=== PATIENT | male | born 1965 | race African-American/Black ===

== ENCOUNTER 2018-11-21 18:16 | Inpatient (IN) | payer MEDICAID, OTHER ==
[~2018-11-21] VITALS: Ht 172.7 cm; Wt 113.4 kg
[2018-11-21] MEDS ORDERED: IBUPROFEN 600MG TABLET PO STA (20:57)
[2018-11-21 22:53] LABS: BASOPHILS % 0.7 % (0.0-2.0); EOSINOPHILS % 2.9 % (0.0-5.0); HEMATOCRIT. 45.5 % (42.0-52.0); HEMOGLOBIN. 14.8 g/dL (14.0-18.0); LYMPHOCYTES % 28.3 % (20.0-50.0); MEAN CORPUSCULAR HEMOGLOBIN 28.9 pg (28.0-32.0); MEAN CORPUSCULAR VOLUME 88.7 fL (80.0-94.0); MEAN PLATELET VOLUME 9.1 fl (7.4-10.4); MONOCYTES % 11.4 % (2.0-8.0); NEUTROPHILS % 56.7 % (40.0-76.0); PLATELET 158 x1000/uL (130-400); RED BLOOD CELL COUNT 5.13 mill/uL (4.7-6.1); RED CELL DISTRIBUTION WIDTH 14.9 % (11.6-14.6)
[2018-11-21 22:58] LABS: CHLORIDE 108 mEq/L (98-107)
[2018-11-21 22:59] LABS: INR 0.9; PROTHROMBIN TIME 9.8 sec (9.6-11.0)
[2018-11-22 00:02] LABS: CLARITY URINE CLEAR (CLEAR); COLOR URINE YELLOW (YELLOW); KETONES URINE NEGATIVE (NEGATIVE); LEUKOCYTE ESTERASE URINE NEGATIVE (NEGATIVE); NITRITE URINE NEGATIVE (NEGATIVE); OCCULT BLOOD URINE NEGATIVE (NEGATIVE); PH URINE 5.5 (4.5-8.0); PROTEIN URINE NEGATIVE (NEGATIVE); SPECIFIC GRAVITY URINE 1.017 (1.005-1.030); UROBILINOGEN URINE 0.2 E.U./dL (0.2-1.0)
[2018-11-22] MEDS ORDERED: ENOXAPARIN 100MG/ML SYR SUBCUT ONE (00:15)
[2018-11-22 04:00] VITALS: BP 142/95
[2018-11-22 04:16] VITALS: BP 143/80
[2018-11-22 07:26] LABS: CHLORIDE 108 mEq/L (98-107)
[2018-11-22 07:30] LABS: BASOPHILS % 0.8 % (0.0-2.0); EOSINOPHILS % 3.3 % (0.0-5.0); HEMATOCRIT. 41.7 % (42.0-52.0); HEMOGLOBIN. 13.6 g/dL (14.0-18.0); LYMPHOCYTES % 36.4 % (20.0-50.0); MEAN CORPUSCULAR HEMOGLOBIN 28.8 pg (28.0-32.0); MEAN CORPUSCULAR VOLUME 88.2 fL (80.0-94.0); MEAN PLATELET VOLUME 9.2 fl (7.4-10.4); NEUTROPHILS % 48.5 % (40.0-76.0); PLATELET 162 x1000/uL (130-400); RED BLOOD CELL COUNT 4.72 mill/uL (4.7-6.1); RED CELL DISTRIBUTION WIDTH 14.6 % (11.6-14.6)
[2018-11-22 08:00] VITALS: BP 127/80
[2018-11-22] MEDS: AMLODIPINE 5MG TABLET PO SCH ×2 (09:34→21:08)
[2018-11-22 12:00] VITALS: BP 124/84
[2018-11-22] MEDS: ENOXAPARIN 120MG/0.8ML SYR SUBCUT SCH (12:28)
[2018-11-22] MEDS: HYDROCODONE/ACETAMINOPHEN 5/325MG TABLET PO PRN (15:36)
[2018-11-22 16:00] VITALS: BP 126/84
[2018-11-22] MEDS ORDERED: POTASSIUM CHLORIDE 20MEQ TABLET SR PO NR (18:00)
[2018-11-22 20:00] VITALS: BP 135/87
[2018-11-23] VITALS: BP 130/90
[2018-11-23] MEDS: HYDROCODONE/ACETAMINOPHEN 5/325MG TABLET PO PRN ×2 (00:31→09:01)
[2018-11-23] MEDS: ENOXAPARIN 120MG/0.8ML SYR SUBCUT SCH ×2 (00:32→12:37)
[2018-11-23 04:00] VITALS: BP 113/81
[2018-11-23 08:00] VITALS: BP 137/87
[2018-11-23] MEDS: AMLODIPINE 5MG TABLET PO SCH (09:00)
[2018-11-23 12:00] VITALS: BP 133/77
[2018-11-23 16:00] VITALS: BP 131/84
[2018-11-23 17:02] VITALS: BP 131/84
== END 2018-11-23 18:15 | disposition home or self-care (01) | DRG 197 ==
LOC: ER 18:16 → 6EST 11-22 01:20 → EDBEDREQ 11-22 01:24 → EDBEDREQTM 11-22 01:24 → ENRESERV 11-22 01:57
PROVIDERS: ADMIT Internal Medicine; ATTEND Internal Medicine
DX: I82.432 Acute embolism and thrombosis of left popliteal vein (principal); E66.9 Obesity, unspecified; F17.200 Nicotine dependence, unspecified, uncomplicated; I12.9 Hypertensive chronic kidney disease with stage 1 through stage 4 chronic kidney disease, or unspecified chronic kidney disease; N18.9 Chronic kidney disease, unspecified; Z88.0 Allergy status to penicillin; Z90.49 Acquired absence of other specified parts of digestive tract; Z71.3 Dietary counseling and surveillance; Z68.38 Body mass index [BMI] 38.0-38.9, adult
CPT/HCPCS: 36415; 80048; 83880; 93005; 93971; 96372; 99285; J1650

== ENCOUNTER 2022-01-20 22:30 | Emergency (ER) | payer MEDICAID ==
[~2022-01-20] VITALS: Ht 172.7 cm; Wt 116.0 kg
[2022-01-21] MEDS ORDERED: ASPIRIN 81MG TABLET PO ONE
[2022-01-21] MEDS ORDERED: ENOXAPARIN 100MG/ML SYR SUBCUT ONE
[2022-01-21 00:22] LABS: BASOPHILS % 0.2 % (0.0-2.0); HEMOGLOBIN. 12.4 g/dL (14.0-18.0); MEAN CORPUSCULAR HEMOGLOBIN 28.9 pg (28.0-32.0); MEAN CORPUSCULAR VOLUME 90.6 fL (80.0-94.0); MEAN PLATELET VOLUME 8.7 fl (7.4-10.4); MONOCYTES % 8.4 % (2.0-8.0); NEUTROPHILS % 49.4 % (40.0-76.0); PLATELET 227 x1000/uL (130-400); RED CELL DISTRIBUTION WIDTH 16.2 % (11.6-14.6)
[2022-01-21 00:34] LABS: D-DIMER 0.29 mg/L FEU (<0.50); INR 0.9; PARTIAL THROMBOPLASTIN TIME 23.7 sec (23.4-31.0)
[2022-01-21 00:55] LABS: CHLORIDE 113 mEq/L (98-107)
[2022-01-21] MEDS ORDERED: FUROSEMIDE 100MG/10ML VIAL IV NR (02:25)
[2022-01-21] MEDS ORDERED: DEXTROSE 50% WATER 50ML SYRINGE IV NR (02:30)
[2022-01-21] MEDS ORDERED: ALBUTEROL (0.083%) 2.5MG/3ML NEB HHN NR (02:30)
[2022-01-21] MEDS ORDERED: INSULIN REGULAR (HUMULIN R) 300UNITS/3ML VIAL IV NR (02:30)
[2022-01-21] MEDS ORDERED: CALCIUM CHLORIDE 1GM/10ML SYR IV NR (02:30)
[2022-01-21] MEDS ORDERED: SODIUM BICARBONATE 8.4% 1 MEQ/ML 50ML SYR IV NR (02:30)
[2022-01-21 06:08] VITALS: BP 134/77
== END 2022-01-21 06:16 | disposition short-term general hospital (02) ==
LOC: ER 22:30
DX: N17.9 Acute kidney failure, unspecified (principal); R60.0 Localized edema; E87.5 Hyperkalemia; I12.9 Hypertensive chronic kidney disease with stage 1 through stage 4 chronic kidney disease, or unspecified chronic kidney disease; N18.9 Chronic kidney disease, unspecified; Z90.49 Acquired absence of other specified parts of digestive tract; Z86.718 Personal history of other venous thrombosis and embolism; Z79.01 Long term (current) use of anticoagulants; Z88.0 Allergy status to penicillin
CPT/HCPCS: 36415; 71045; 80053; 82962; 83880; 84484; 85025; 85379; 85610; 85730; 93005; 93970; 94640; 96372; 96374; 96375; 99285; J1650; J1815; J1940; J3490; Z7610